=== PATIENT | male | born 1950 | race Caucasian/White ===

== ENCOUNTER → 2017-07-16 | Outpatient (CLI) | payer OTHER | LOC: FIMAGING 08:43 | PROVIDERS: ATTEND Orthopaedic Surgery | DX: S83.271A Complex tear of lateral meniscus, current injury, right knee, initial encounter (principal); M22.41 Chondromalacia patellae, right knee; M67.9 Unspecified disorder of synovium and tendon ==

== ENCOUNTER 2019-01-25 22:59 | Emergency (ER) | payer OTHER | END 2019-01-26 02:24 | disposition home or self-care (01) | LOC: CED 22:59 ==